=== PATIENT | female | born 1970 | race African-American/Black ===

== ENCOUNTER → 2020-05-19 | Outpatient (CLI) | payer MEDICARE, MEDICAID ==
[~2020-05-19] MED LIST: ALBU90AE IH; AMLO5TAB88 PO; ATOR10TA PO; ENAL10TA PO; WARF5TAB76 PO
== END | disposition home or self-care (01) ==
LOC: LAB 07:29
PROVIDERS: ATTEND Family Medicine Adult Medicine
DX: Z20.828 Contact with and (suspected) exposure to other viral communicable diseases (principal)
CPT/HCPCS: C9803; U0003

== ENCOUNTER 2020-05-21 07:50 | Day surgery (SDC) | payer MEDICARE, MEDICAID ==
[~2020-05-21] VITALS: Ht 161.3 cm; Wt 104.3 kg
[~2020-05-21 07:50] MED LIST changes: -ATOR10TA PO; -ENAL10TA PO; -WARF5TAB76 PO
[2020-05-21] MEDS ORDERED: LACTATED RINGERS 1,000 ML IV SCH (08:00)
[2020-05-21] MEDS ORDERED: CHLORHEXIDINE GLUCONATE 4% EXTERNAL USE TOP STA (08:08)
[2020-05-21 08:37] LABS: CLARITY URINE CLEAR (CLEAR); COLOR URINE YELLOW (YELLOW); KETONES URINE NEGATIVE (NEGATIVE); LEUKOCYTE ESTERASE URINE NEGATIVE (NEGATIVE); NITRITE URINE NEGATIVE (NEGATIVE); OCCULT BLOOD URINE TRACE (NEGATIVE); PH URINE 6.5 (4.5-8.0); PROTEIN URINE 1+ (NEGATIVE); UROBILINOGEN URINE 0.2 E.U./dL (0.2-1.0)
[2020-05-21 08:40] LABS: UCG SCREEN NEGATIVE
[2020-05-21 08:42] LABS: CHLORIDE 109 mEq/L (98-107)
[2020-05-21 08:43] LABS: BASOPHILS % 1.1 % (0.0-2.0); EOSINOPHILS % 4.6 % (0.0-5.0); HEMOGLOBIN. 13.1 g/dL (12.0-16.0); LYMPHOCYTES % 35.7 % (20.0-50.0); MEAN CORPUSCULAR HEMOGLOBIN 25.8 pg (28.0-32.0); MEAN CORPUSCULAR VOLUME 78.8 fL (81.0-99.0); MEAN PLATELET VOLUME 8.3 fl (7.4-10.4); MONOCYTES % 7.9 % (2.0-8.0); NEUTROPHILS % 50.7 % (40.0-76.0); PLATELET 281 x1000/uL (130-400); RED BLOOD CELL COUNT 5.08 mill/uL (4.2-5.4); RED CELL DISTRIBUTION WIDTH 16.6 % (11.6-14.6)
[2020-05-21 08:47] LABS: PARTIAL THROMBOPLASTIN TIME 27.6 sec (23.4-31.0); PROTHROMBIN TIME 10.5 sec (9.6-11.0)
[2020-05-21] MEDS ORDERED: PROPOFOL 200MG/20ML VIAL IV ONE (10:17)
[2020-05-21] MEDS ORDERED: MIDAZOLAM HCL 2 MG/2 ML VIAL ONE (10:17)
[2020-05-21] MEDS ORDERED: FENTANYL CITRATE/PF 50MCG/ML 2ML VIAL ONE (10:17)
[2020-05-21] MEDS ORDERED: ONDANSETRON HCL 4MG/2ML INJ ONE (10:37)
[2020-05-21] MEDS ORDERED: HYDROMORPHONE HCL/PF 2MG/ML CPJ IV PRN (11:00)
[2020-05-21] MEDS ORDERED: ONDANSETRON HCL 4MG/2ML INJ IV PRN (11:00)
[2020-05-21] MEDS ORDERED: MEPERIDINE HCL/PF 25MG/ML CPJ IV PRN (11:00)
== END 2020-05-21 14:10 | disposition home or self-care (01) ==
LOC: OR 07:50
PROVIDERS: ATTEND Obstetrics & Gynecology Obstetrics
DX: N95.0 Postmenopausal bleeding (principal); Z86.718 Personal history of other venous thrombosis and embolism; Z82.49 Family history of ischemic heart disease and other diseases of the circulatory system; Z88.8 Allergy status to other drugs, medicaments and biological substances; Z88.0 Allergy status to penicillin; Z91.040 Latex allergy status; Z91.041 Radiographic dye allergy status
CPT/HCPCS: 36415; 58120; 80053; 81003; 81025; 85025; 85610; 85730; 88305; 93005; J2250; J2405; J2704; J3010

== ENCOUNTER 2021-12-13 01:42 | Emergency (ER) | payer MEDICARE, MEDICAID ==
[~2021-12-13] VITALS: Ht 160 cm; Wt 111.0 kg
[2021-12-13] MEDS ORDERED: HYDROCODONE/ACETAMINOPHEN 5/325MG TABLET PO ONE (03:30)
[2021-12-13 04:18] LABS: BASOPHILS % 0.5 % (0.0-2.0); EOSINOPHILS % 0.6 % (0.0-5.0); HEMATOCRIT. 46.8 % (36.0-48.0); HEMOGLOBIN. 15.3 g/dL (12.0-16.0); LYMPHOCYTES % 21.4 % (20.0-50.0); MEAN CORPUSCULAR HEMOGLOBIN 27.5 pg (28.0-32.0); MEAN CORPUSCULAR VOLUME 83.9 fL (81.0-99.0); MEAN PLATELET VOLUME 8.1 fl (7.4-10.4); MONOCYTES % 4.6 % (2.0-8.0); NEUTROPHILS % 72.9 % (40.0-76.0); PLATELET 277 x1000/uL (130-400); RED BLOOD CELL COUNT 5.58 mill/uL (4.2-5.4); RED CELL DISTRIBUTION WIDTH 15.3 % (11.6-14.6)
[2021-12-13] MEDS ORDERED: HYDROCODONE/ACETAMINOPHEN 5/325MG TABLET PO NR (05:00)
[2021-12-13 05:33] LABS: CHLORIDE 110 mEq/L (98-107)
[2021-12-13 06:00] VITALS: BP 125/76
[2021-12-17] MEDS ORDERED: PRED5TAB PO (15:25)
[2021-12-17] MEDS ORDERED: LINA5TAB PO (15:28)
== END 2021-12-13 06:30 | disposition home or self-care (01) ==
LOC: ER 01:42 → SUPCPDRO 12:48
DX: G62.89 Other specified polyneuropathies (principal); I87.8 Other specified disorders of veins; E11.9 Type 2 diabetes mellitus without complications; I25.2 Old myocardial infarction; Z98.890 Other specified postprocedural states; Z88.0 Allergy status to penicillin
CPT/HCPCS: 36415; 80053; 83880; 85025; 93005; 99284

== ENCOUNTER 2021-12-31 02:50 | Inpatient (IN) | payer MEDICARE, MEDICAID ==
[~2021-12-31] VITALS: Ht 152.4 cm; Wt 100.4 kg
[~2021-12-31 02:50] MED LIST changes: +LINA5TAB PO; +PRED5TAB PO
[2022-01-01 03:00] VITALS: BP 133/75
[2022-01-01] MEDS ORDERED: CLONIDINE 0.1MG TABLET PO PRN (04:30)
[2022-01-01] MEDS ORDERED: DEXTROSE 50% WATER 50ML SYRINGE IV PRN (04:30)
[2022-01-01] MEDS ORDERED: HYDROCODONE/APAP 7.5/325MG 1 TAB TABLET PO PRN (04:30)
[2022-01-01] MEDS ORDERED: GUAIFENESIN 200MG/10ML SUGAR FREE UDC PO PRN (04:30)
[2022-01-01] MEDS ORDERED: ACETAMINOPHEN 650MG SUPP PR PRN ×2 (04:30)
[2022-01-01] MEDS ORDERED: ACETAMINOPHEN 325MG TABLET PO PRN (04:30)
[2022-01-01] MEDS ORDERED: IPRATROPIUM/ALBUTEROL 0.5-3(2.5)MG/3ML NEB HHN PRN (04:30)
[2022-01-01] MEDS ORDERED: MAGNESIUM/ALUMINUM HYDROXIDE/SIMETHICONE 30ML UDC PO PRN (04:30)
[2022-01-01] MEDS ORDERED: NALOXONE HCL 0.4 MG/ML 1ML VIAL IV PRN (04:30)
[2022-01-01] MEDS ORDERED: ONDANSETRON HCL 4MG/2ML INJ IV PRN (04:30)
[2022-01-01] MEDS ORDERED: DOCUSATE SODIUM 100MG CAPSULE PO PRN (04:30)
[2022-01-01] MEDS ORDERED: HYDROCODONE/ACETAMINOPHEN 10/325MG TABLET PO PRN (04:30)
[2022-01-01] MEDS ORDERED: DIPHENHYDRAMINE 50MG/ML VIAL IV PRN (04:30)
[2022-01-01] MEDS ORDERED: MORPHINE SULFATE 2 MG/ML CPJ (NOT FOR IM USE) IV PRN (05:15)
[2022-01-01] MEDS: INSULIN LISPRO 100 UNITS/ML SUBCUT SCH ×6 (06:21→18:09)
[2022-01-01] MEDS: BLOOD SUGAR DIAGNOSTIC STRIP TEST SCH ×4 (06:21→20:58)
[2022-01-01 08:00] VITALS: BP 121/80
[2022-01-01] MEDS ORDERED: INSULIN LISPRO 100 UNITS/ML SUBCUT SCH (09:00)
[2022-01-01] MEDS: FUROSEMIDE 40MG/4ML VIAL IVP SCH (09:26)
[2022-01-01] MEDS: DOCUSATE SODIUM 100MG CAPSULE PO SCH ×2 (09:29→17:00)
[2022-01-01] MEDS: PREDNISONE 5MG TABLET PO SCH ×2 (09:29→17:34)
[2022-01-01] MEDS: LINAGLIPTIN 5MG TABLET PO SCH (09:29)
[2022-01-01] MEDS: APIXABAN 5 MG TABLET PO SCH ×2 (09:30→17:34)
[2022-01-01 10:05] LABS: CHLORIDE 111 mEq/L (98-107)
[2022-01-01 16:47] LABS: BASOPHILS % 0.4 % (0.0-2.0); EOSINOPHILS % 1.5 % (0.0-5.0); HEMATOCRIT. 29.8 % (36.0-48.0); HEMOGLOBIN. 9.7 g/dL (12.0-16.0); MEAN CORPUSCULAR VOLUME 83.1 fL (81.0-99.0); MEAN PLATELET VOLUME 7.2 fl (7.4-10.4); MONOCYTES % 5.9 % (2.0-8.0); NEUTROPHILS % 80.2 % (40.0-76.0); PLATELET 499 x1000/uL (130-400); RED BLOOD CELL COUNT 3.58 mill/uL (4.2-5.4)
[2022-01-01 20:58] VITALS: BP 131/87
[2022-01-01] MEDS: POLYETHYLENE GLYCOL 3350 (17GM) 1 DOSE PACK PO SCH (20:58)
[2022-01-02] MEDS: BLOOD SUGAR DIAGNOSTIC STRIP TEST SCH ×4 (06:32→21:25)
[2022-01-02] MEDS: INSULIN LISPRO 100 UNITS/ML SUBCUT SCH ×6 (06:33→17:38)
[2022-01-02] MEDS: ACETAMINOPHEN 325MG TABLET PO PRN (06:52)
[2022-01-02 08:00] VITALS: BP 120/78
[2022-01-02 08:01] LABS: BASOPHILS % 0.9 % (0.0-2.0); EOSINOPHILS % 5.2 % (0.0-5.0); HEMATOCRIT. 27.5 % (36.0-48.0); HEMOGLOBIN. 9.2 g/dL (12.0-16.0); MEAN CORPUSCULAR HEMOGLOBIN 27.6 pg (28.0-32.0); MEAN CORPUSCULAR VOLUME 82.8 fL (81.0-99.0); MEAN PLATELET VOLUME 6.8 fl (7.4-10.4); MONOCYTES % 7.5 % (2.0-8.0); NEUTROPHILS % 60.4 % (40.0-76.0); PLATELET 505 x1000/uL (130-400); RED BLOOD CELL COUNT 3.32 mill/uL (4.2-5.4); RED CELL DISTRIBUTION WIDTH 15.3 % (11.6-14.6)
[2022-01-02 08:22] LABS: CHLORIDE 109 mEq/L (98-107)
[2022-01-02 08:39] LABS: TOTAL IRON BINDING CAPACITY 205 ug/dL (250-450)
[2022-01-02] MEDS: DOCUSATE SODIUM 100MG CAPSULE PO SCH ×4 (09:00→17:36)
[2022-01-02] MEDS: FUROSEMIDE 40MG/4ML VIAL IVP SCH ×2 (09:00→09:33)
[2022-01-02] MEDS: LINAGLIPTIN 5MG TABLET PO SCH (09:32)
[2022-01-02] MEDS: APIXABAN 5 MG TABLET PO SCH ×2 (09:33→17:36)
[2022-01-02] MEDS: PREDNISONE 5MG TABLET PO SCH ×2 (09:33→17:37)
[2022-01-02 09:39] LABS: FOLIC ACID (FOLATE) SERUM 12.2 ng/mL (>5.38)
[2022-01-02] MEDS: FERROUS SULFATE 325MG TABLET PO SCH (17:39)
[2022-01-02 20:00] VITALS: BP 128/75
[2022-01-02] MEDS: POLYETHYLENE GLYCOL 3350 (17GM) 1 DOSE PACK PO SCH (21:00)
[2022-01-03] MEDS: BLOOD SUGAR DIAGNOSTIC STRIP TEST SCH ×4 (06:02→21:29)
[2022-01-03] MEDS: ACETAMINOPHEN 325MG TABLET PO PRN (06:11)
[2022-01-03] MEDS: INSULIN LISPRO 100 UNITS/ML SUBCUT SCH ×6 (06:11→16:51)
[2022-01-03 08:00] VITALS: BP 115/71
[2022-01-03] MEDS: DOCUSATE SODIUM 100MG CAPSULE PO SCH ×2 (09:00→16:26)
[2022-01-03] MEDS: FUROSEMIDE 40MG/4ML VIAL IVP SCH (09:00)
[2022-01-03] MEDS: PREDNISONE 5MG TABLET PO SCH ×2 (09:06→16:25)
[2022-01-03] MEDS: FERROUS SULFATE 325MG TABLET PO SCH ×2 (09:06→16:25)
[2022-01-03] MEDS: LINAGLIPTIN 5MG TABLET PO SCH (09:07)
[2022-01-03] MEDS: APIXABAN 5 MG TABLET PO SCH ×2 (09:07→16:25)
[2022-01-03 20:00] VITALS: BP 122/72
[2022-01-03] MEDS: POLYETHYLENE GLYCOL 3350 (17GM) 1 DOSE PACK PO SCH (21:29)
[2022-01-04] MEDS: BLOOD SUGAR DIAGNOSTIC STRIP TEST SCH ×4 (06:07→21:29)
[2022-01-04] MEDS: ACETAMINOPHEN 325MG TABLET PO PRN (06:08)
[2022-01-04 06:17] LABS: BASOPHILS % 0.8 % (0.0-2.0); EOSINOPHILS % 5.1 % (0.0-5.0); HEMOGLOBIN. 9.2 g/dL (12.0-16.0); LYMPHOCYTES % 28.1 % (20.0-50.0); MEAN CORPUSCULAR HEMOGLOBIN 27.8 pg (28.0-32.0); MEAN CORPUSCULAR VOLUME 84.3 fL (81.0-99.0); MEAN PLATELET VOLUME 6.9 fl (7.4-10.4); MONOCYTES % 7.8 % (2.0-8.0); NEUTROPHILS % 58.2 % (40.0-76.0); PLATELET 536 x1000/uL (130-400); RED BLOOD CELL COUNT 3.32 mill/uL (4.2-5.4); RED CELL DISTRIBUTION WIDTH 15.7 % (11.6-14.6)
[2022-01-04] MEDS: INSULIN LISPRO 100 UNITS/ML SUBCUT SCH ×6 (07:00→17:56)
[2022-01-04 07:18] LABS: CHLORIDE 111 mEq/L (98-107)
[2022-01-04] MEDS ORDERED: POTASSIUM CHLORIDE 20MEQ TABLET SR PO SCH (07:30)
[2022-01-04 08:00] VITALS: BP 161/85
[2022-01-04] MEDS: PREDNISONE 5MG TABLET PO SCH ×2 (08:13→18:05)
[2022-01-04] MEDS: LINAGLIPTIN 5MG TABLET PO SCH (08:13)
[2022-01-04] MEDS: APIXABAN 5 MG TABLET PO SCH ×2 (08:13→18:05)
[2022-01-04] MEDS: FERROUS SULFATE 325MG TABLET PO SCH ×2 (08:13→18:05)
[2022-01-04] MEDS: FUROSEMIDE 40MG/4ML VIAL IVP SCH (09:00)
[2022-01-04] MEDS: DOCUSATE SODIUM 100MG CAPSULE PO SCH ×2 (09:00→17:00)
[2022-01-04 20:00] VITALS: BP 126/76
[2022-01-04] MEDS: POLYETHYLENE GLYCOL 3350 (17GM) 1 DOSE PACK PO SCH (21:00)
[2022-01-05] MEDS: BLOOD SUGAR DIAGNOSTIC STRIP TEST SCH ×4 (06:30→21:05)
[2022-01-05 06:38] LABS: BASOPHILS % 1.1 % (0.0-2.0); EOSINOPHILS % 4.7 % (0.0-5.0); HEMATOCRIT. 27.2 % (36.0-48.0); HEMOGLOBIN. 9.3 g/dL (12.0-16.0); LYMPHOCYTES % 24.6 % (20.0-50.0); MEAN CORPUSCULAR HEMOGLOBIN 28.1 pg (28.0-32.0); MEAN CORPUSCULAR VOLUME 82.3 fL (81.0-99.0); MONOCYTES % 7.9 % (2.0-8.0); NEUTROPHILS % 61.7 % (40.0-76.0); PLATELET 548 x1000/uL (130-400); RED BLOOD CELL COUNT 3.31 mill/uL (4.2-5.4); RED CELL DISTRIBUTION WIDTH 15.6 % (11.6-14.6)
[2022-01-05 06:52] LABS: CHLORIDE 112 mEq/L (98-107)
[2022-01-05] MEDS: INSULIN LISPRO 100 UNITS/ML SUBCUT SCH ×6 (07:00→17:00)
[2022-01-05 08:00] VITALS: BP 123/78
[2022-01-05] MEDS: FUROSEMIDE 40MG/4ML VIAL IVP SCH (09:27)
[2022-01-05] MEDS: PREDNISONE 5MG TABLET PO SCH ×2 (09:27→17:53)
[2022-01-05] MEDS: APIXABAN 5 MG TABLET PO SCH ×2 (09:27→17:53)
[2022-01-05] MEDS: DOCUSATE SODIUM 100MG CAPSULE PO SCH ×2 (09:27→17:00)
[2022-01-05] MEDS: FERROUS SULFATE 325MG TABLET PO SCH ×2 (09:27→17:53)
[2022-01-05] MEDS: CLOPIDOGREL 75MG TABLET PO SCH (09:28)
[2022-01-05] MEDS: LINAGLIPTIN 5MG TABLET PO SCH (09:29)
[2022-01-05 20:00] VITALS: BP 122/75
[2022-01-05] MEDS: POLYETHYLENE GLYCOL 3350 (17GM) 1 DOSE PACK PO SCH (21:00)
[2022-01-06] MEDS: ACETAMINOPHEN 325MG TABLET PO PRN (01:15)
[2022-01-06] MEDS: BLOOD SUGAR DIAGNOSTIC STRIP TEST SCH ×4 (06:54→21:00)
[2022-01-06] MEDS: INSULIN LISPRO 100 UNITS/ML SUBCUT SCH ×6 (07:00→17:00)
[2022-01-06 08:00] VITALS: BP 135/75
[2022-01-06] MEDS: FUROSEMIDE 40MG/4ML VIAL IVP SCH (08:32)
[2022-01-06] MEDS: APIXABAN 5 MG TABLET PO SCH ×2 (08:33→17:29)
[2022-01-06] MEDS: CLOPIDOGREL 75MG TABLET PO SCH (08:33)
[2022-01-06] MEDS: LINAGLIPTIN 5MG TABLET PO SCH (08:33)
[2022-01-06] MEDS: PREDNISONE 5MG TABLET PO SCH ×2 (08:33→17:29)
[2022-01-06] MEDS: DOCUSATE SODIUM 100MG CAPSULE PO SCH ×2 (08:34→17:00)
[2022-01-06] MEDS: FERROUS SULFATE 325MG TABLET PO SCH ×2 (08:34→17:00)
[2022-01-06 20:00] VITALS: BP 130/72
[2022-01-06] MEDS: POLYETHYLENE GLYCOL 3350 (17GM) 1 DOSE PACK PO SCH (21:00)
[2022-01-07 06:30] LABS: BASOPHILS % 0.9 % (0.0-2.0); EOSINOPHILS % 5.3 % (0.0-5.0); HEMATOCRIT. 28.6 % (36.0-48.0); HEMOGLOBIN. 9.7 g/dL (12.0-16.0); LYMPHOCYTES % 27.1 % (20.0-50.0); MEAN CORPUSCULAR VOLUME 82.5 fL (81.0-99.0); MONOCYTES % 8.1 % (2.0-8.0); NEUTROPHILS % 58.6 % (40.0-76.0); PLATELET 567 x1000/uL (130-400); RED BLOOD CELL COUNT 3.47 mill/uL (4.2-5.4); RED CELL DISTRIBUTION WIDTH 16.4 % (11.6-14.6)
[2022-01-07 06:39] LABS: CHLORIDE 113 mEq/L (98-107)
[2022-01-07] MEDS: INSULIN LISPRO 100 UNITS/ML SUBCUT SCH ×6 (07:00→17:00)
[2022-01-07] MEDS: BLOOD SUGAR DIAGNOSTIC STRIP TEST SCH ×4 (07:06→20:36)
[2022-01-07 08:00] VITALS: BP 129/81
[2022-01-07] MEDS: FERROUS SULFATE 325MG TABLET PO SCH ×2 (08:38→17:51)
[2022-01-07] MEDS: CLOPIDOGREL 75MG TABLET PO SCH (08:38)
[2022-01-07] MEDS: PREDNISONE 5MG TABLET PO SCH ×2 (08:39→17:51)
[2022-01-07] MEDS: APIXABAN 5 MG TABLET PO SCH ×2 (08:39→17:52)
[2022-01-07] MEDS: LINAGLIPTIN 5MG TABLET PO SCH (08:39)
[2022-01-07] MEDS: FUROSEMIDE 40MG/4ML VIAL IVP SCH (08:41)
[2022-01-07] MEDS: DOCUSATE SODIUM 100MG CAPSULE PO SCH ×2 (08:41→17:51)
[2022-01-07] MEDS: POTASSIUM CHLORIDE 20MEQ TABLET SR PO SCH (14:59)
[2022-01-07 20:00] VITALS: BP 119/65
[2022-01-07] MEDS: POLYETHYLENE GLYCOL 3350 (17GM) 1 DOSE PACK PO SCH (20:36)
[2022-01-08] MEDS: BLOOD SUGAR DIAGNOSTIC STRIP TEST SCH ×4 (05:47→21:07)
[2022-01-08] MEDS: INSULIN LISPRO 100 UNITS/ML SUBCUT SCH ×6 (05:48→17:13)
[2022-01-08 07:08] LABS: BASOPHILS % 0.8 % (0.0-2.0); HEMATOCRIT. 30.9 % (36.0-48.0); LYMPHOCYTES % 25.2 % (20.0-50.0); MEAN CORPUSCULAR HEMOGLOBIN 27.2 pg (28.0-32.0); MEAN CORPUSCULAR VOLUME 84.6 fL (81.0-99.0); MONOCYTES % 7.8 % (2.0-8.0); NEUTROPHILS % 62.2 % (40.0-76.0); PLATELET 585 x1000/uL (130-400); RED BLOOD CELL COUNT 3.66 mill/uL (4.2-5.4); RED CELL DISTRIBUTION WIDTH 16.1 % (11.6-14.6)
[2022-01-08 07:10] LABS: CHLORIDE 112 mEq/L (98-107)
[2022-01-08 07:57] VITALS: BP 114/78
[2022-01-08] MEDS: POTASSIUM CHLORIDE 20MEQ TABLET SR PO SCH (08:07)
[2022-01-08] MEDS: FERROUS SULFATE 325MG TABLET PO SCH ×2 (08:07→16:49)
[2022-01-08] MEDS: APIXABAN 5 MG TABLET PO SCH ×2 (08:07→16:49)
[2022-01-08] MEDS: LINAGLIPTIN 5MG TABLET PO SCH (08:07)
[2022-01-08] MEDS: PREDNISONE 5MG TABLET PO SCH ×2 (08:07→16:48)
[2022-01-08] MEDS: DOCUSATE SODIUM 100MG CAPSULE PO SCH ×2 (08:17→16:48)
[2022-01-08] MEDS: FUROSEMIDE 40MG/4ML VIAL IVP SCH (08:17)
[2022-01-08] MEDS: CLOPIDOGREL 75MG TABLET PO SCH (08:53)
[2022-01-08 20:00] VITALS: BP 128/75
[2022-01-08] MEDS: POLYETHYLENE GLYCOL 3350 (17GM) 1 DOSE PACK PO SCH (21:00)
[2022-01-09] MEDS: INSULIN LISPRO 100 UNITS/ML SUBCUT SCH ×7 (05:57→20:50)
[2022-01-09] MEDS: BLOOD SUGAR DIAGNOSTIC STRIP TEST SCH ×4 (05:57→20:50)
[2022-01-09 08:00] VITALS: BP 125/75
[2022-01-09] MEDS: FUROSEMIDE 40MG/4ML VIAL IVP SCH (09:00)
[2022-01-09] MEDS: DOCUSATE SODIUM 100MG CAPSULE PO SCH ×2 (09:00→17:00)
[2022-01-09] MEDS: CLOPIDOGREL 75MG TABLET PO SCH (09:06)
[2022-01-09] MEDS: PREDNISONE 5MG TABLET PO SCH ×2 (09:06→17:18)
[2022-01-09] MEDS: FERROUS SULFATE 325MG TABLET PO SCH ×2 (09:06→17:18)
[2022-01-09] MEDS: POTASSIUM CHLORIDE 20MEQ TABLET SR PO SCH (09:06)
[2022-01-09] MEDS: APIXABAN 5 MG TABLET PO SCH ×2 (09:06→17:18)
[2022-01-09] MEDS: LINAGLIPTIN 5MG TABLET PO SCH (09:11)
[2022-01-09 20:00] VITALS: BP 114/74
[2022-01-09] MEDS: POLYETHYLENE GLYCOL 3350 (17GM) 1 DOSE PACK PO SCH (20:49)
[2022-01-10] MEDS: INSULIN LISPRO 100 UNITS/ML SUBCUT SCH ×5 (07:00→17:26)
[2022-01-10 08:00] VITALS: BP 148/90
[2022-01-10] MEDS: DOCUSATE SODIUM 100MG CAPSULE PO SCH ×2 (08:39→17:00)
[2022-01-10] MEDS: POTASSIUM CHLORIDE 20MEQ TABLET SR PO SCH (08:39)
[2022-01-10] MEDS: APIXABAN 5 MG TABLET PO SCH ×2 (08:39→17:23)
[2022-01-10] MEDS: PREDNISONE 5MG TABLET PO SCH ×2 (08:39→17:23)
[2022-01-10] MEDS: LINAGLIPTIN 5MG TABLET PO SCH (08:39)
[2022-01-10] MEDS: FERROUS SULFATE 325MG TABLET PO SCH ×2 (08:39→17:23)
[2022-01-10] MEDS: CLOPIDOGREL 75MG TABLET PO SCH (08:39)
[2022-01-10] MEDS: FUROSEMIDE 40MG/4ML VIAL IVP SCH (08:40)
[2022-01-10 08:44] LABS: CHLORIDE 111 mEq/L (98-107)
[2022-01-10] MEDS: BLOOD SUGAR DIAGNOSTIC STRIP TEST SCH ×3 (11:15→21:12)
[2022-01-10 17:06] LABS: 25-HYDROXY VITAMIN D3 2.7 ng/mL (.)
[2022-01-10 20:00] VITALS: BP 128/74
[2022-01-10] MEDS: POLYETHYLENE GLYCOL 3350 (17GM) 1 DOSE PACK PO SCH (21:00)
[2022-01-11] MEDS: BLOOD SUGAR DIAGNOSTIC STRIP TEST SCH ×4 (06:01→21:15)
[2022-01-11 08:00] VITALS: BP 155/83
[2022-01-11] MEDS: INSULIN LISPRO 100 UNITS/ML SUBCUT SCH ×7 (08:32→17:41)
[2022-01-11] MEDS: DOCUSATE SODIUM 100MG CAPSULE PO SCH ×2 (08:33→16:40)
[2022-01-11] MEDS: LINAGLIPTIN 5MG TABLET PO SCH (08:33)
[2022-01-11] MEDS: CLOPIDOGREL 75MG TABLET PO SCH (08:34)
[2022-01-11] MEDS: POTASSIUM CHLORIDE 20MEQ TABLET SR PO SCH (08:34)
[2022-01-11] MEDS: PREDNISONE 5MG TABLET PO SCH ×2 (08:34→16:40)
[2022-01-11] MEDS: FERROUS SULFATE 325MG TABLET PO SCH ×2 (08:34→16:39)
[2022-01-11] MEDS: FUROSEMIDE 40MG/4ML VIAL IVP SCH (08:43)
[2022-01-11] MEDS ORDERED: ERGOCALCIFEROL 50000UNITS CAPSULE PO SCH (14:30)
[2022-01-11] MEDS: APIXABAN 5 MG TABLET PO SCH ×2 (16:40→17:00)
[2022-01-11 20:00] VITALS: BP 135/78
[2022-01-11] MEDS: POLYETHYLENE GLYCOL 3350 (17GM) 1 DOSE PACK PO SCH (21:00)
[2022-01-12 07:40] LABS: BASOPHILS % 1.1 % (0.0-2.0); EOSINOPHILS % 4.2 % (0.0-5.0); HEMATOCRIT. 31.3 % (36.0-48.0); HEMOGLOBIN. 10.3 g/dL (12.0-16.0); LYMPHOCYTES % 31.2 % (20.0-50.0); MEAN CORPUSCULAR HEMOGLOBIN 27.3 pg (28.0-32.0); MEAN CORPUSCULAR VOLUME 82.9 fL (81.0-99.0); MEAN PLATELET VOLUME 6.9 fl (7.4-10.4); MONOCYTES % 8.9 % (2.0-8.0); NEUTROPHILS % 54.6 % (40.0-76.0); PLATELET 475 x1000/uL (130-400); RED BLOOD CELL COUNT 3.78 mill/uL (4.2-5.4); RED CELL DISTRIBUTION WIDTH 16.8 % (11.6-14.6)
[2022-01-12 07:49] LABS: CHLORIDE 111 mEq/L (98-107)
[2022-01-12 08:00] VITALS: BP 127/85
[2022-01-12] MEDS: POTASSIUM CHLORIDE 20MEQ TABLET SR PO SCH (08:05)
[2022-01-12] MEDS: APIXABAN 5 MG TABLET PO SCH ×2 (08:05→18:01)
[2022-01-12] MEDS: PREDNISONE 5MG TABLET PO SCH ×2 (08:05→18:01)
[2022-01-12] MEDS: FERROUS SULFATE 325MG TABLET PO SCH ×2 (08:05→18:01)
[2022-01-12] MEDS: CLOPIDOGREL 75MG TABLET PO SCH (08:05)
[2022-01-12] MEDS: DOCUSATE SODIUM 100MG CAPSULE PO SCH ×2 (08:06→17:00)
[2022-01-12] MEDS: LINAGLIPTIN 5MG TABLET PO SCH (08:06)
[2022-01-12] MEDS: FUROSEMIDE 40MG/4ML VIAL IVP SCH (08:06)
[2022-01-12] MEDS ORDERED: POTASSIUM CHLORIDE 20MEQ TABLET SR PO SCH ×2 (09:00→14:45)
[2022-01-12] MEDS: INSULIN LISPRO 100 UNITS/ML SUBCUT SCH ×5 (09:00→18:07)
[2022-01-12] MEDS: BLOOD SUGAR DIAGNOSTIC STRIP TEST SCH ×3 (11:15→21:41)
[2022-01-12 20:00] VITALS: BP 129/77
[2022-01-12] MEDS: POLYETHYLENE GLYCOL 3350 (17GM) 1 DOSE PACK PO SCH (21:00)
[2022-01-13 06:41] LABS: BASOPHILS % 0.7 % (0.0-2.0); EOSINOPHILS % 3.1 % (0.0-5.0); HEMOGLOBIN. 10.5 g/dL (12.0-16.0); LYMPHOCYTES % 27.8 % (20.0-50.0); MEAN CORPUSCULAR HEMOGLOBIN 27.3 pg (28.0-32.0); MEAN CORPUSCULAR VOLUME 85.3 fL (81.0-99.0); MEAN PLATELET VOLUME 7.3 fl (7.4-10.4); MONOCYTES % 8.2 % (2.0-8.0); NEUTROPHILS % 60.2 % (40.0-76.0); PLATELET 446 x1000/uL (130-400); RED BLOOD CELL COUNT 3.87 mill/uL (4.2-5.4); RED CELL DISTRIBUTION WIDTH 16.9 % (11.6-14.6)
[2022-01-13] MEDS: BLOOD SUGAR DIAGNOSTIC STRIP TEST SCH ×4 (07:14→20:56)
[2022-01-13] MEDS: INSULIN LISPRO 100 UNITS/ML SUBCUT SCH ×6 (07:14→18:17)
[2022-01-13 07:39] LABS: CHLORIDE 114 mEq/L (98-107)
[2022-01-13 08:00] VITALS: BP 129/93
[2022-01-13] MEDS: DOCUSATE SODIUM 100MG CAPSULE PO SCH ×2 (09:00→17:00)
[2022-01-13] MEDS: FUROSEMIDE 40MG/4ML VIAL IVP SCH (09:00)
[2022-01-13] MEDS: PREDNISONE 5MG TABLET PO SCH ×2 (09:27→18:15)
[2022-01-13] MEDS: FERROUS SULFATE 325MG TABLET PO SCH ×2 (09:27→18:15)
[2022-01-13] MEDS: CLOPIDOGREL 75MG TABLET PO SCH (09:27)
[2022-01-13] MEDS: APIXABAN 5 MG TABLET PO SCH ×2 (09:27→18:15)
[2022-01-13] MEDS: LINAGLIPTIN 5MG TABLET PO SCH (09:27)
[2022-01-13] MEDS: POTASSIUM CHLORIDE 20MEQ TABLET SR PO SCH (09:27)
[2022-01-13] MEDS ORDERED: APIX5TAB PO (19:25)
[2022-01-13] MEDS ORDERED: EMPA25TA PO (19:53)
[2022-01-13] MEDS ORDERED: FURO20TA4 PO (19:53)
[2022-01-13] MEDS ORDERED: EZET10TA13 PO (19:54)
[2022-01-13] MEDS ORDERED: LIP40 PO (19:54)
[2022-01-13] MEDS ORDERED: REPA2TAB8 PO (19:55)
[2022-01-13] MEDS ORDERED: BLOO-1113 MC (19:56)
[2022-01-13 20:00] VITALS: BP 147/77
[2022-01-13] MEDS: POLYETHYLENE GLYCOL 3350 (17GM) 1 DOSE PACK PO SCH (20:56)
[2022-01-14] MEDS: BLOOD SUGAR DIAGNOSTIC STRIP TEST SCH ×4 (06:30→20:04)
[2022-01-14] MEDS: INSULIN LISPRO 100 UNITS/ML SUBCUT SCH ×6 (07:00→16:40)
[2022-01-14 08:00] VITALS: BP 134/74
[2022-01-14] MEDS: FUROSEMIDE 40MG/4ML VIAL IVP SCH ×2 (09:00→09:25)
[2022-01-14] MEDS: DOCUSATE SODIUM 100MG CAPSULE PO SCH ×3 (09:00→16:30)
[2022-01-14] MEDS: POTASSIUM CHLORIDE 20MEQ TABLET SR PO SCH ×2 (09:00→09:25)
[2022-01-14] MEDS: PREDNISONE 5MG TABLET PO SCH ×2 (09:25→16:39)
[2022-01-14] MEDS: APIXABAN 5 MG TABLET PO SCH ×2 (09:25→16:39)
[2022-01-14] MEDS: FERROUS SULFATE 325MG TABLET PO SCH ×2 (09:25→16:39)
[2022-01-14] MEDS: CLOPIDOGREL 75MG TABLET PO SCH (09:25)
[2022-01-14] MEDS: LINAGLIPTIN 5MG TABLET PO SCH (09:26)
[2022-01-14] MEDS ORDERED: POTA20TA82 PO (15:53)
[2022-01-14] MEDS ORDERED: SIMV-46 MT (15:53)
[2022-01-14] MEDS ORDERED: APIX5TAB PO (15:53)
[2022-01-14] MEDS ORDERED: FURO40TA5 MT (15:53)
[2022-01-14] MEDS ORDERED: INSLIS SUBCUT (15:53)
[2022-01-14] MEDS ORDERED: LINA5TAB PO (15:53)
[2022-01-14] MEDS ORDERED: PRED5TAB PO (15:53)
[2022-01-14 16:07] VITALS: BP 134/74
[2022-01-14] MEDS: POLYETHYLENE GLYCOL 3350 (17GM) 1 DOSE PACK PO SCH (20:04)
== END 2022-01-14 20:10 | disposition home health service (06) | DRG 300 ==
LOC: 4WST 02:50 → UNDOADMIN 02:50 → UNDODISIN 01-01 02:40
PROVIDERS: ADMIT Physical Medicine & Rehabilitation Spinal Cord Injury Medicine; ATTEND Family Medicine Adult Medicine
DX: I82.411 Acute embolism and thrombosis of right femoral vein (principal); T79.A21A Traumatic compartment syndrome of right lower extremity, initial encounter; E11.52 Type 2 diabetes mellitus with diabetic peripheral angiopathy with gangrene; D68.59 Other primary thrombophilia; N17.9 Acute kidney failure, unspecified; N04.0 Nephrotic syndrome with minor glomerular abnormality; Z68.41 Body mass index [BMI] 40.0-44.9, adult; I74.5 Embolism and thrombosis of iliac artery; I82.402 Acute embolism and thrombosis of unspecified deep veins of left lower extremity; I82.431 Acute embolism and thrombosis of right popliteal vein; D64.9 Anemia, unspecified; D75.839 Thrombocytosis, unspecified; E11.21 Type 2 diabetes mellitus with diabetic nephropathy; E11.42 Type 2 diabetes mellitus with diabetic polyneuropathy; E55.9 Vitamin D deficiency, unspecified; E66.01 Morbid (severe) obesity due to excess calories; E78.00 Pure hypercholesterolemia, unspecified; E78.41 Elevated Lipoprotein(a); E88.09 Other disorders of plasma-protein metabolism, not elsewhere classified; G54.6 Phantom limb syndrome with pain; I10 Essential (primary) hypertension; E87.6 Hypokalemia; F39 Unspecified mood [affective] disorder; R53.81 Other malaise; R26.2 Difficulty in walking, not elsewhere classified; R79.89 Other specified abnormal findings of blood chemistry; R74.8 Abnormal levels of other serum enzymes; R74.01 Elevation of levels of liver transaminase levels; E11.65 Type 2 diabetes mellitus with hyperglycemia; I25.10 Atherosclerotic heart disease of native coronary artery without angina pectoris; I25.5 Ischemic cardiomyopathy; M32.9 Systemic lupus erythematosus, unspecified; E78.5 Hyperlipidemia, unspecified; Z82.49 Family history of ischemic heart disease and other diseases of the circulatory system; Z86.718 Personal history of other venous thrombosis and embolism; Z87.441 Personal history of nephrotic syndrome; Z89.611 Acquired absence of right leg above knee; Z95.5 Presence of coronary angioplasty implant and graft; Z56.0 Unemployment, unspecified; Z88.0 Allergy status to penicillin; Z91.041 Radiographic dye allergy status; Z91.040 Latex allergy status
CPT/HCPCS: 36415; 80048; 80053; 82306; 82607; 82728; 82746; 82962; 83540; 83550; 83735; 84134; 84443; 85025; 93970; 97110; 97116; 97150; 97162; 97166; 97530; 97535; 97542; J1815; J1940; J7512

== ENCOUNTER 2022-01-21 21:10 | Inpatient (IN) | payer MEDICARE, MEDICAID ==
[~2022-01-21] VITALS: Ht 160 cm; Wt 63.5 kg
[~2022-01-21 21:10] MED LIST changes: -AMLO5TAB88 PO; +APIX5TAB PO; +BLOO-1113 MC; +FURO40TA5 MT; +INSLIS SUBCUT; +POTA20TA82 PO; +SIMV-46 MT
[2022-01-21 23:53] LABS: BASOPHILS % 0.6 % (0.0-2.0); EOSINOPHILS % 1.8 % (0.0-5.0); HEMOGLOBIN. 11.7 g/dL (12.0-16.0); LYMPHOCYTES % 20.4 % (20.0-50.0); MEAN CORPUSCULAR HEMOGLOBIN 27.7 pg (28.0-32.0); MEAN CORPUSCULAR VOLUME 84.8 fL (81.0-99.0); MEAN PLATELET VOLUME 7.9 fl (7.4-10.4); MONOCYTES % 5.7 % (2.0-8.0); NEUTROPHILS % 71.5 % (40.0-76.0); PLATELET 327 x1000/uL (130-400); RED BLOOD CELL COUNT 4.24 mill/uL (4.2-5.4); RED CELL DISTRIBUTION WIDTH 17.1 % (11.6-14.6)
[2022-01-22 00:04] LABS: CHLORIDE 111 mEq/L (98-107)
[2022-01-22] MEDS ORDERED: CEPH500C2 MT (02:07)
[2022-01-22] MEDS ORDERED: LEVOFLOXACIN 750MG PREMIX 150 ML IV ONE (07:00)
[2022-01-22] MEDS ORDERED: GUAIFENESIN 200MG/10ML SUGAR FREE UDC PO PRN (09:45)
[2022-01-22] MEDS ORDERED: IPRATROPIUM/ALBUTEROL 0.5-3(2.5)MG/3ML NEB HHN PRN (09:45)
[2022-01-22] MEDS ORDERED: CLONIDINE 0.1MG TABLET PO PRN (09:45)
[2022-01-22] MEDS ORDERED: DOCUSATE SODIUM 100MG CAPSULE PO PRN (09:45)
[2022-01-22] MEDS ORDERED: ACETAMINOPHEN 650MG SUPP PR PRN ×2 (09:45)
[2022-01-22] MEDS ORDERED: MAGNESIUM/ALUMINUM HYDROXIDE/SIMETHICONE 30ML UDC PO PRN (09:45)
[2022-01-22] MEDS ORDERED: HYDROCODONE/ACETAMINOPHEN 5/325MG TABLET PO PRN (09:45)
[2022-01-22] MEDS ORDERED: ONDANSETRON HCL 4MG/2ML INJ IV PRN (09:45)
[2022-01-22] MEDS ORDERED: ACETAMINOPHEN 325MG TABLET PO PRN ×2 (09:45)
[2022-01-22] MEDS ORDERED: LORAZEPAM 0.5MG TABLET PO PRN (09:45)
[2022-01-22 09:53] VITALS: BP 148/78
[2022-01-22] MEDS ORDERED: ENOXAPARIN 30MG/0.3ML SYR SUBCUT SCH (11:00)
[2022-01-22 12:00] VITALS: BP 129/64
[2022-01-22 16:00] VITALS: BP 103/82
[2022-01-22] MEDS ORDERED: DEXTROSE 50% WATER 50ML SYRINGE IV PRN (17:30)
[2022-01-22] MEDS: INSULIN LISPRO 100 UNITS/ML SUBCUT SCH ×2 (17:45→22:27)
[2022-01-22] MEDS: BLOOD SUGAR DIAGNOSTIC STRIP TEST SCH ×2 (17:45→21:00)
[2022-01-22] MEDS: LINAGLIPTIN 5MG TABLET PO SCH (17:46)
[2022-01-22] MEDS: AMLODIPINE 5MG TABLET PO SCH (17:46)
[2022-01-22] MEDS: PREDNISONE 5MG TABLET PO SCH (17:46)
[2022-01-22] MEDS: POTASSIUM CHLORIDE 20MEQ TABLET SR PO SCH (17:55)
[2022-01-22] MEDS: FUROSEMIDE 40MG TABLET PO SCH (17:55)
[2022-01-22] MEDS ORDERED: VANCOMYCIN 1.25GM PMX (XELLIA) 250 ML IV NR (18:00)
[2022-01-22] MEDS ORDERED: NALOXONE HCL 0.4MG/ML VIAL IV PRN (18:30)
[2022-01-22 20:00] VITALS: BP 109/57
[2022-01-22] MEDS: CEFEPIME 1,000 MG in DEXTROSE 5% WATER 50 ML IV SCH (22:19)
[2022-01-23] VITALS: BP 99/72
[2022-01-23] MEDS: VANCOMYCIN 750MG PREMIX 150 ML IV SCH ×2 (03:19→10:33)
[2022-01-23 04:00] VITALS: BP 142/70
[2022-01-23 05:40] LABS: BASOPHILS % 0.5 % (0.0-2.0); EOSINOPHILS % 2.8 % (0.0-5.0); HEMATOCRIT. 35.1 % (36.0-48.0); HEMOGLOBIN. 11.4 g/dL (12.0-16.0); LYMPHOCYTES % 18.2 % (20.0-50.0); MEAN CORPUSCULAR HEMOGLOBIN 27.3 pg (28.0-32.0); MONOCYTES % 4.6 % (2.0-8.0); NEUTROPHILS % 73.9 % (40.0-76.0); PLATELET 284 x1000/uL (130-400); RED BLOOD CELL COUNT 4.18 mill/uL (4.2-5.4)
[2022-01-23 06:15] LABS: CHLORIDE 111 mEq/L (98-107)
[2022-01-23 06:30] LABS: C REACTIVE PROTEIN QUANT 4.4 mg/L (0.0-3.0); CREATINE KINASE 44 IU/L (26-192); HDL CHOLESTEROL 45 mg/dL (40-59); LDL CHOLESTEROL 108 mg/dL (5-100)
[2022-01-23] MEDS: BLOOD SUGAR DIAGNOSTIC STRIP TEST SCH ×4 (07:20→20:34)
[2022-01-23 07:51] VITALS: BP 138/73
[2022-01-23] MEDS: CEFEPIME 1,000 MG in DEXTROSE 5% WATER 50 ML IV SCH ×2 (08:42→20:28)
[2022-01-23] MEDS: PREDNISONE 5MG TABLET PO SCH ×2 (08:42→17:05)
[2022-01-23] MEDS: LINAGLIPTIN 5MG TABLET PO SCH (08:42)
[2022-01-23] MEDS: FUROSEMIDE 40MG TABLET PO SCH ×2 (08:43→08:51)
[2022-01-23] MEDS: AMLODIPINE 5MG TABLET PO SCH ×2 (08:43→17:05)
[2022-01-23] MEDS: POTASSIUM CHLORIDE 20MEQ TABLET SR PO SCH (08:43)
[2022-01-23] MEDS: APIXABAN 2.5 MG TABLET PO SCH ×2 (08:43→17:05)
[2022-01-23] MEDS: INSULIN LISPRO 100 UNITS/ML SUBCUT SCH ×4 (08:46→20:35)
[2022-01-23 12:00] VITALS: BP 136/78
[2022-01-23 16:00] VITALS: BP 138/82
[2022-01-23 20:00] VITALS: BP 133/77
[2022-01-24] VITALS (7 sets, daily range): BP systolic 122–132; BP diastolic 60–75
[2022-01-24] MEDS ORDERED: VANCOMYCIN 750MG PREMIX 150 ML IV SCH (01:00)
[2022-01-24] MEDS: INSULIN LISPRO 100 UNITS/ML SUBCUT SCH ×4 (06:12→21:00)
[2022-01-24] MEDS: BLOOD SUGAR DIAGNOSTIC STRIP TEST SCH ×4 (06:12→21:00)
[2022-01-24 08:10] LABS: BASOPHILS % 0.6 % (0.0-2.0); EOSINOPHILS % 3.6 % (0.0-5.0); HEMATOCRIT. 32.9 % (36.0-48.0); HEMOGLOBIN. 10.8 g/dL (12.0-16.0); LYMPHOCYTES % 27.5 % (20.0-50.0); MEAN CORPUSCULAR HEMOGLOBIN 27.6 pg (28.0-32.0); MEAN CORPUSCULAR VOLUME 83.7 fL (81.0-99.0); MEAN PLATELET VOLUME 7.8 fl (7.4-10.4); MONOCYTES % 7.7 % (2.0-8.0); NEUTROPHILS % 60.6 % (40.0-76.0); PLATELET 272 x1000/uL (130-400); RED BLOOD CELL COUNT 3.93 mill/uL (4.2-5.4); RED CELL DISTRIBUTION WIDTH 16.5 % (11.6-14.6)
[2022-01-24 08:23] LABS: CHLORIDE 112 mEq/L (98-107)
[2022-01-24] MEDS ORDERED: POTASSIUM CHLORIDE 20MEQ TABLET SR PO NR (09:00)
[2022-01-24] MEDS: FUROSEMIDE 40MG TABLET PO SCH (09:00)
[2022-01-24] MEDS: APIXABAN 2.5 MG TABLET PO SCH ×2 (09:16→18:04)
[2022-01-24] MEDS: POTASSIUM CHLORIDE 20MEQ TABLET SR PO SCH (09:17)
[2022-01-24] MEDS: LINAGLIPTIN 5MG TABLET PO SCH (09:17)
[2022-01-24] MEDS: PREDNISONE 5MG TABLET PO SCH ×2 (09:17→18:05)
[2022-01-24] MEDS: AMLODIPINE 5MG TABLET PO SCH ×2 (09:17→18:05)
[2022-01-24] MEDS: CEFEPIME 1,000 MG in DEXTROSE 5% WATER 50 ML IV SCH ×2 (09:18→20:34)
[2022-01-24] MEDS ORDERED: SULF1TAB47 MT (11:25)
[2022-01-24] MEDS: VANCOMYCIN 1G PREMIX 200 ML IV SCH (15:04)
[2022-01-25] VITALS: BP 113/58
[2022-01-25] MEDS: VANCOMYCIN 1G PREMIX 200 ML IV SCH (00:29)
[2022-01-25 04:00] VITALS: BP 126/68
[2022-01-25 06:38] LABS: BASOPHILS % 0.5 % (0.0-2.0); EOSINOPHILS % 2.6 % (0.0-5.0); HEMATOCRIT. 34.4 % (36.0-48.0); LYMPHOCYTES % 25.5 % (20.0-50.0); MEAN CORPUSCULAR HEMOGLOBIN 27.1 pg (28.0-32.0); MEAN CORPUSCULAR VOLUME 84.7 fL (81.0-99.0); MEAN PLATELET VOLUME 8.3 fl (7.4-10.4); MONOCYTES % 6.9 % (2.0-8.0); NEUTROPHILS % 64.5 % (40.0-76.0); PLATELET 268 x1000/uL (130-400); RED BLOOD CELL COUNT 4.06 mill/uL (4.2-5.4); RED CELL DISTRIBUTION WIDTH 16.6 % (11.6-14.6)
[2022-01-25 07:20] LABS: CHLORIDE 111 mEq/L (98-107)
[2022-01-25] MEDS: INSULIN LISPRO 100 UNITS/ML SUBCUT SCH (07:49)
[2022-01-25 08:00] VITALS: BP 132/79
[2022-01-25 08:19] VITALS: BP 132/79
[2022-01-25] MEDS: APIXABAN 2.5 MG TABLET PO SCH (08:59)
[2022-01-25] MEDS: LINAGLIPTIN 5MG TABLET PO SCH ×2 (08:59→09:00)
[2022-01-25] MEDS: AMLODIPINE 5MG TABLET PO SCH (08:59)
[2022-01-25] MEDS: PREDNISONE 5MG TABLET PO SCH (08:59)
[2022-01-25] MEDS: POTASSIUM CHLORIDE 20MEQ TABLET SR PO SCH (08:59)
[2022-01-25] MEDS: FUROSEMIDE 40MG TABLET PO SCH ×2 (08:59→09:00)
== END 2022-01-25 11:10 | disposition home health service (06) | DRG 565 ==
LOC: ER 21:10 → 6WST 01-22 06:49 → ENRESERV 01-22 07:19 → EDBEDREQTM 01-22 07:34 → EDBEDREQ 01-22 07:34 → 6WST 01-22 08:02
PROVIDERS: ADMIT Internal Medicine; ATTEND Family Medicine Adult Medicine
PROC: 8E0YXY8 Suture Removal from Lower Extremity (ICD-10-PCS; principal; 2022-01-23)
DX: T87.43 Infection of amputation stump, right lower extremity (principal); D68.59 Other primary thrombophilia; N04.9 Nephrotic syndrome with unspecified morphologic changes; L03.115 Cellulitis of right lower limb; M86.151 Other acute osteomyelitis, right femur; E78.5 Hyperlipidemia, unspecified; E11.69 Type 2 diabetes mellitus with other specified complication; E87.6 Hypokalemia; M32.9 Systemic lupus erythematosus, unspecified; I10 Essential (primary) hypertension; E11.51 Type 2 diabetes mellitus with diabetic peripheral angiopathy without gangrene; Y83.5 Amputation of limb(s) as the cause of abnormal reaction of the patient, or of later complication, without mention of misadventure at the time of the procedure; I25.10 Atherosclerotic heart disease of native coronary artery without angina pectoris; Z95.5 Presence of coronary angioplasty implant and graft; Z86.718 Personal history of other venous thrombosis and embolism; Y92.89 Other specified places as the place of occurrence of the external cause; Z79.899 Other long term (current) drug therapy; Z88.0 Allergy status to penicillin; Z91.041 Radiographic dye allergy status; Z91.040 Latex allergy status; Z90.710 Acquired absence of both cervix and uterus
CPT/HCPCS: 36415; 73552; 73718; 80048; 80053; 80061; 80202; 82550; 82962; 83036; 83605; 83735; 84443; 84484; 85025; 85651; 86140; 87070; 87077; 87186; 97162; 97166; 99285; J0692; J1650; J1815; J1956; J3370; J7060; J7512

== ENCOUNTER 2025-07-08 06:28 | Emergency (ER) | payer MEDICARE, MEDICAID ==
[~2025-07-08] VITALS: Ht 162.6 cm; Wt 84.0 kg
[~2025-07-08 06:28] MED LIST changes: +POTA-204 PO; -POTA20TA82 PO; +SULF1TAB47 MT
[2025-07-08 06:34] VITALS: O2SAT 99
[2025-07-08 08:13] LABS: BASOPHILS % 1.6 % (0.0-2.0); EOSINOPHILS % 1.9 % (0.0-5.0); HEMATOCRIT. 40.3 % (36.0-48.0); HEMOGLOBIN. 13.2 g/dL (12.0-16.0); LYMPHOCYTES % 35.4 % (20.0-50.0); MEAN PLATELET VOLUME 8.1 fl (7.4-10.4); MONOCYTES % 5.6 % (2.0-8.0); NEUTROPHILS % 55.5 % (40.0-76.0); PLATELET 271 x1000/uL (130-400); RED BLOOD CELL COUNT 4.93 mill/uL (4.2-5.4); RED CELL DISTRIBUTION WIDTH 14.1 % (11.6-14.6)
[2025-07-08 08:25] LABS: CREATININE 0.6 mg/dL (0.6-1.0); UREA NITROGEN BLOOD < 5 mg/dL (9-23)
[2025-07-08 08:27] LABS: ASPARTATE AMINOTRANSFERASE 16 IU/L (<34)
[2025-07-08 08:28] LABS: BILIRUBIN TOTAL 0.4 mg/dL (0.1-1.0); PROTEIN TOTAL 7.0 g/dL (6.0-8.3)
[2025-07-08] MEDS: INSULIN REGULAR (HUMULIN R) 1000UNITS/10ML VIAL SUBCUT ONE (08:48)
[2025-07-08 08:50] VITALS: BP 135/87; PULSE 82; RESP 16; TEMP 36.9; O2SAT 99
== END 2025-07-08 08:51 | disposition home or self-care (01) ==
LOC: ER 06:28
DX: B02.29 Other postherpetic nervous system involvement (principal); E78.5 Hyperlipidemia, unspecified; E11.65 Type 2 diabetes mellitus with hyperglycemia; I10 Essential (primary) hypertension; Z79.84 Long term (current) use of oral hypoglycemic drugs; Z79.52 Long term (current) use of systemic steroids; Z79.01 Long term (current) use of anticoagulants; Z79.899 Other long term (current) drug therapy; I25.10 Atherosclerotic heart disease of native coronary artery without angina pectoris; Z88.0 Allergy status to penicillin; Z88.8 Allergy status to other drugs, medicaments and biological substances; Z90.710 Acquired absence of both cervix and uterus; Z91.040 Latex allergy status
CPT/HCPCS: 99285; 74176; 80053; 83690; 85025; 36415; J1815; 96372